=== PATIENT | female | born 1990 | race Caucasian/White ===

== ENCOUNTER 2018-10-16 15:59 | Inpatient (IN) | payer OTHER ==
[2018-10-16] MEDS ORDERED: BUTORPHANOL 1 MG/ML 1 ML VIAL IV PRN (16:11)
[2018-10-16] MEDS ORDERED: DINOPROSTONE 10 MG INSERT.ER VAGINAL ONE (16:11)
[2018-10-16] MEDS ORDERED: ZOLPIDEM 5 MG TAB PO PRN (16:11)
[2018-10-16 16:20] VITALS: BMI 39.0
--- NOTE | 2018-10-16 18:48 | P.HPOB ---
History of Present Illness H&P Date: 10/16/18 Chief Complaint: Induction of labor 28-year-old presents at 39 weeks for induction of labor. Her cervix is closed, thick, -3 station. The plan is for Cervidil tonight and Pitocin in the morning. heart tones are 120s with moderate variability and reactive. Review of Systems All systems: negative Constitutional: Denies chills, Denies fever Eyes: denies blurred vision, denies pain Ears, nose, mouth and throat: Denies headache, Denies sore throat Cardiovascular: Denies chest pain, Denies shortness of breath Respiratory: Denies cough Gastrointestinal: Denies abdominal pain, Denies diarrhea, Denies nausea, Denies vomiting Genitourinary: Denies dysuria, Denies hematuria Musculoskeletal: Denies myalgias Integumentary: Denies pruritus, Denies rash Neurological: Denies numbness, Denies weakness Psychiatric: Denies anxiety, Denies depression Endocrine: Denies fatigue, Denies weight change Past Medical History Past Medical History: No Reported History Additional Past Medical History / Comment(s): Obstetrics history: She's had 3 spontaneous abortions and this is her fourth . Blood type O-, rubella immune, hepatitis B negative, RPR nonreactive. History of Any Multi-Drug Resistant Organisms: None Reported Past Surgical History: No Surgical Hx Reported Additional Past Surgical History / Comment(s): colonoscopy Past Anesthesia/Blood Transfusion Reactions: No Reported Reaction Past Psychological History: ADD/ADHD Smoking Status: Never smoker Past Alcohol Use History: None Reported Past Drug Use History: None Reported - Past Family History Father Family Medical History: Coronary Artery Disease (CAD) Medications and Allergies Home Medications Medication Instructions Recorded Confirmed Type Pnv No.95/Ferrous Fum/Folic AC 1 tab PO DAILY 10/16/18 10/16/18 History [ Multivitamin Tablet] Allergies Allergy/AdvReac Type Severity Reaction Status Date / Time No Known Allergies Allergy Verified 10/16/18 16:09 Exam Osteopathic Statement: *. No significant issues noted on an osteopathic structural exam other than those noted in the History and Physical/Consult. Vital Signs Temp Pulse Resp BP Pulse Ox 10/16/18 16:08 97.2 F L 85 16 135/68 98 Intake and Output 10/16/18 10/16/18 10/16/18 06:59 14:59 22:59 Other: Weight 127.006 kg Heart: Regular rate and rhythm Lungs: Clear to auscultation bilaterally Abdomen: Soft, nontender Extremities: Negative Homans sign Assessment and Plan (1) Normal labor Current Visit: Yes Status: Acute Code(s): O80 - ENCOUNTER FOR FULL-TERM UNCOMPLICATED DELIVERY; Z37.9 - OUTCOME OF DELIVERY, UNSPECIFIED SNOMED Code(s): 97573115 Plan: 1. Induction of labor with Cervidil tonight and then Pitocin in the morning.
[2018-10-17] MEDS ORDERED: METHYLERGONOVINE 0.2 MG/ML 1 ML AMP IM PRN (05:13)
[2018-10-17] MEDS ORDERED: LIDOCAINE 0.5% (PF) 5 MG/ML (50 ML SDV) SQ PRN (05:13)
[2018-10-17] MEDS ORDERED: OXYTOCIN 10 UNIT/ML 1 ML VIAL IM PRN (05:13)
[2018-10-17] MEDS ORDERED: TERBUTALINE 1 MG/ML VIAL SQ PRN (05:13)
[2018-10-17] MEDS ORDERED: AMPICILLIN 2,000 MG in SODIUM CHLORIDE 0.9% 100 ML IVPB STA (05:13)
[2018-10-17] MEDS ORDERED: CARBOPROST TROMETHAMINE 250 MCG/ML 1 ML AMP IM PRN (05:13)
[2018-10-17] MEDS ORDERED: OXYTOCIN 30 UNITS/500 ML NS 30 UNIT in SALINE 1 500ML.BAG IV SCH (05:15)
[2018-10-17 05:42] LABS: Basophils # (A) 0.1 k/uL (0-0.2); Basophils % (A) 0 %; Eosinophils # (A) 0.1 k/uL (0-0.7); Eosinophils % (A) 1 %; HCT 42.5 % (34.0-46.0); HGB 13.2 gm/dL (11.4-16.0); Lymphocytes # (A) 1.6 k/uL (1.0-4.8); Lymphocytes % (A) 11 %; MCH 27.4 pg (25.0-35.0); MCV 88.5 fL (80.0-100.0); Mean Platelet Volume 6.4; Monocytes # (A) 0.6 k/uL (0-1.0); Monocytes % (A) 4 %; Neutrophils # (A) 11.8 k/uL (1.3-7.7); Neutrophils % (A) 83 %; Platelet Count 203 k/uL (150-450); RDW 14.8 % (11.5-15.5); WBC 14.2 k/uL (3.8-10.6)
[2018-10-17] MEDS: LACTATED RINGERS 1,000 ML IV SCH ×2 (05:42→15:36)
[2018-10-17] MEDS ORDERED: ceFAZolin 3 GM in SODIUM CHLORIDE 0.9% 100 ML IVPB ONE (08:58)
[2018-10-17] MEDS ORDERED: CITRIC ACID-SODIUM CITRATE 15 ML CUP PO ONE (08:58)
[2018-10-17] MEDS ORDERED: AMPICILLIN 1,000 MG in SODIUM CHLORIDE 0.9% 50 ML IVPB SCH (09:30)
[2018-10-17] MEDS ORDERED: ePHEDrine SULFATE/0.9% NACL/PF 50 MG/5 ML SYRINGE IV ONE (16:56)
[2018-10-17] MEDS ORDERED: ONDANSETRON 4 MG/2 ML VIAL ONE (16:56)
[2018-10-17] MEDS ORDERED: NALBUPHINE 10 MG/ML (1 ML AMP) ONE (16:56)
[2018-10-17] MEDS ORDERED: MORPHINE SULFATE (PF) 0.3 MG/0.3 ML SYR ONE (16:56)
[2018-10-17] MEDS ORDERED: LACTATED RINGERS 1,000 ML BAG IV ONE (16:56)
[2018-10-17] MEDS ORDERED: KETOROLAC 30 MG/ML 1 ML VIAL ONE (16:56)
[2018-10-17] MEDS ORDERED: OXYTOCIN 10 UNIT/ML 1 ML VIAL ONE (16:56)
--- NOTE | 2018-10-17 17:39 | P.PN ---
Progress Note - Text Progress Note Date: 10/17/18 Patient was seen and evaluated this morning with notation that she had made no cervical change through the night. We had offered and discussed discharged home with return in a couple days to retry she is adamant that she have a section for delivery today. We'll plan delivery today. Vital signs are otherwise stable and she is afebrile. And a category 1 tracing is noted.
--- NOTE | 2018-10-17 17:42 | P.OP ---
Date of Procedure: 10/17/18 Preoperative Diagnosis: Intrauterine at term: Failure to dilate Postoperative Diagnosis: Same Procedure(s) Performed: Primary low transverse section Anesthesia: spinal Surgeon: Asaf Salamanca Pilot Can Router #1: Sarah Nazario Estimated Blood Loss (ml): 500 IV fluids (ml): 800 Urine output (ml): 200 Pathology: none sent Condition: stable Disposition: floor Operative Findings: Female scores of 8 and 9 at one and 5 minutes respectively and the weight was 8 lbs. 0 oz. Description of Procedure: Patient was taken to the operating suite where a spinal anesthetic was found be adequate. She was prepped and draped in normal sterile fashion and placed in dorsal supine position with leftward tilt. Initially a Pfannenstiel skin incision was made and this incision was then carried through to underlying layer of the fascia was second knife. Fascia was then nicked in the midline and this opening was extended laterally with Ordaz scissors. Superior and inferior aspect of this incision were then grasped tented up and bluntly and sharply dissected off the rectus muscles. Rectus muscles were then divided in the midline and sharp dissection through the peritoneum was done. This opening was then extended superiorly and inferiorly with good visualization of both bowel bladder. Bladder blade was then placed and the bladder flap identified. It was entered with Metzenbaum scissors and this opening was extended across the face uterus with Metzenbaum scissors. Knife was then used to incise uterus. This incision was then fully developed with hemostat and then extended bluntly. Head was then atraumatically delivered and mouth nares were bulb suctioned. Anterior and posterior shoulders were then easily delivered followed by the remainder the baby. Nursery personnel was present to assume care in the umbilical cord was clamped cut usual fashion. Placenta was then delivered intact following collection of cord blood. Uterus was then exteriorized cleared of clots and debris and closed in 2 layers with 0 Vicryl suture. Once excellent hemostasis was obtained. Blood and debris was then suctioned from the posterior cul-de-sac and the uterus was reinserted into the abdomen. Peritoneal layer was reapproximated with 0 Vicryl suture. Fascial layer was closed with 0 Vicryl suture. One layer of 3-0 Vicryl was placed in deep subcuticular tissues reapproximate the skin and skin was then closed with 3-0 Vicryl subcuticularly. Sponge, lap, needle counts were all correct 2. Patient was then taken to the recovery room in stable and satisfactory condition.
[2018-10-17] MEDS ORDERED: SIMETHICONE 80 MG CHEWABLE PO PRN (23:24)
[2018-10-17] MEDS ORDERED: diphenhydrAMINE 50 MG/ML 1 ML VIAL IVP PRN ×2 (23:24)
[2018-10-17] MEDS ORDERED: METOCLOPRAMIDE 5 MG/ML 2 ML VIAL IVP PRN (23:24)
[2018-10-17] MEDS ORDERED: diphenhydrAMINE 50 MG CAP PO PRN (23:24)
[2018-10-17] MEDS ORDERED: NALOXONE 0.4 MG/ML 1 ML VIAL IV PRN (23:24)
[2018-10-17] MEDS ORDERED: ONDANSETRON 4 MG/2 ML VIAL IVP PRN (23:24)
[2018-10-17] MEDS ORDERED: diphenhydrAMINE 25 MG CAP PO PRN (23:24)
[2018-10-17] MEDS ORDERED: ACETAMINOPHEN TAB 325 MG TAB PO PRN (23:24)
[2018-10-18] MEDS: LACTATED RINGERS 1,000 ML IV SCH ×4 (00:12→20:36)
[2018-10-18] MEDS: KETOROLAC 30 MG/ML 1 ML VIAL IVP PRN ×2 (02:04→07:45)
--- NOTE | 2018-10-18 05:51 | P.PN ---
Progress Note - Text Progress Note Date: 10/18/18 Patient doing well. Ambulating without paresthesia or weakness. Denies headache. Pain controlled. Spinal site clean and dry A/P POD#1 s/p with spinal duramorph - doing well
[2018-10-18 07:14] LABS: Basophils % (A) 0 %; Eosinophils # (A) 0.1 k/uL (0-0.7); Eosinophils % (A) 1 %; HCT 34.2 % (34.0-46.0); Lymphocytes # (A) 0.9 k/uL (1.0-4.8); Lymphocytes % (A) 7 %; MCH 28.3 pg (25.0-35.0); MCHC 32.2 g/dL (31.0-37.0); MCV 87.6 fL (80.0-100.0); Monocytes # (A) 0.6 k/uL (0-1.0); Monocytes % (A) 5 %; Neutrophils # (A) 10.8 k/uL (1.3-7.7); Neutrophils % (A) 86 %; Platelet Count 165 k/uL (150-450); RDW 14.7 % (11.5-15.5); WBC 12.5 k/uL (3.8-10.6)
--- NOTE | 2018-10-18 07:36 | P.PNOBGPC ---
Subjective - Subjective Principal diagnosis: Postop day 1 Interval history: Overall patient is doing well. She does have some nausea take was ambulation, this is not unusual this early post-operatively. She is able and delivery and has voided. Vital signs are otherwise stable and she is afebrile. Heart regular, lungs clear, extremities are without pain. We'll allow her to remove dressing later this morning with her shower. All other questions are answered for her at this time. Assessment postop day 1. Plan continue current care and advancement of diet. Patient reports: Reports appetite normal, Reports voiding normally, Reports pain well controlled, Reports ambulating normally [place]: doing well Objective - Vital Signs Latest vital signs: Vital Signs Temp Pulse Resp BP Pulse Ox 10/18/18 03:52 97.6 F 66 16 109/61 99 10/18/18 00:00 97.6 F 79 16 127/73 10/17/18 20:00 76 16 133/56 98 10/17/18 19:30 98.0 F 85 16 133/66 98 10/17/18 18:54 73 16 143/67 10/17/18 18:39 74 18 135/59 10/17/18 18:20 82 18 142/79 97 10/17/18 18:09 82 18 141/68 97 10/17/18 18:00 83 18 135/63 97 10/17/18 17:45 96.5 F L 85 18 129/58 97 Intake and Output 10/17/18 10/18/18 10/18/18 22:59 06:59 14:59 Intake Total 300 Output Total 50 500 Balance -50 -200 Intake: Other 300 Output: Urine 50 300 Uretheral (Conn) 200 Emesis 200 Other: # Emeses 1 - Labs Labs: Abnormal Lab Results - Last 24 Hours (Table) 10/18/18 Range/Units 06:27 WBC 12.5 H (3.8-10.6) k/uL Hgb 11.0 L (11.4-16.0) gm/dL Neutrophils # 10.8 H (1.3-7.7) k/uL Lymphocytes # 0.9 L (1.0-4.8) k/uL
[2018-10-18] MEDS: SENNOSIDES-DOCUSATE SODIUM 1 EACH TAB PO SCH ×2 (07:45→20:05)
[2018-10-18 16:40] VITALS: RESP 16
[2018-10-18] MEDS: IBUPROFEN 600 MG TAB PO PRN ×2 (16:40→23:04)
[2018-10-18] MEDS: HYDROcodone/APAP 7.5-325MG 1 EACH TAB PO PRN (20:05)
[2018-10-19] MEDS: HYDROcodone/APAP 7.5-325MG 1 EACH TAB PO PRN ×2 (02:13→08:05)
[2018-10-19] MEDS: IBUPROFEN 600 MG TAB PO PRN ×2 (05:07→10:29)
[2018-10-19 08:05] VITALS: BP 128/76; PULSE 71; TEMP 97.7
[2018-10-19] MEDS: SENNOSIDES-DOCUSATE SODIUM 1 EACH TAB PO SCH (08:05)
--- NOTE | 2018-10-19 08:46 | P.DS ---
Providers Date of admission: 10/16/18 15:59 Expected date of discharge: 10/19/18 Attending physician: Asaf Salamanca Primary care physician: Stated None Hospital Course: Patient is doing very well postop day 2. She is involuting, voiding, and tolerating her diet. She voices no complaints. Vital signs are stable and afebrile. Heart regular, lungs clear, extremities without pain. Abdomen soft uterus is firm and incision is clean dry and intact. Assessment postop day 2. Plan discharged home follow up with me in 1 week. Prescriptions for Motrin and Bogue provided and all questions are answered for her prior to discharge. Patient Condition at Discharge: Good Plan - Discharge Summary New Discharge Prescriptions: New Ibuprofen [Motrin] 600 mg PO Q6HR PRN #30 tab PRN Reason: Pain HYDROcodone/APAP 5-325MG [Bogue 5-325] 1 tab PO Q4HR PRN #30 tab PRN Reason: Pain No Action Pnv No.95/Ferrous Fum/Folic AC [ Multivitamin Tablet] 1 tab PO DAILY Discharge Medication List Pnv No.95/Ferrous Fum/Folic AC [ Multivitamin Tablet] 1 tab PO DAILY 10/16/18 [History] HYDROcodone/APAP 5-325MG [Bogue 5-325] 1 tab PO Q4HR PRN #30 tab 10/19/18 [Rx] Ibuprofen [Motrin] 600 mg PO Q6HR PRN #30 tab 10/19/18 [Rx] Follow up Appointment(s)/Referral(s): Asaf Salamanca DO [Doctor of Osteopathic Medicine] - 1 Week Activity/Diet/Wound Care/Special Instructions: No heavy lifting, stairs and driving, and pelvic rest. If any high temperatures, heavy bleeding, or severe pain call my office Discharge Disposition: HOME SELF-CARE
== END 2018-10-19 10:45 | disposition home or self-care (01) | DRG 788 ==
LOC: 4FBP 15:59
PROVIDERS: ADMIT Obstetrics & Gynecology; ATTEND Obstetrics & Gynecology
PROC: 3E0P7VZ Introduction of Hormone into Female Reproductive, Via Natural or Artificial Opening (ICD-10-PCS; 2018-10-16)
PROC: 3E033VJ Introduction of Other Hormone into Peripheral Vein, Percutaneous Approach (ICD-10-PCS; 2018-10-17)
PROC: 10D00Z1 Extraction of Products of Conception, Low, Open Approach (ICD-10-PCS; principal; 2018-10-17 17:00)
DX: O62.0 Primary inadequate contractions (principal); O99.344 Other mental disorders complicating childbirth; F90.9 Attention-deficit hyperactivity disorder, unspecified type; Z3A.39 39 weeks gestation of pregnancy; Z37.0 Single live birth; Z79.899 Other long term (current) drug therapy; Z82.49 Family history of ischemic heart disease and other diseases of the circulatory system
CPT/HCPCS: 85025; 86850; 86900; 86901

== ENCOUNTER → 2019-09-27 | Outpatient (CLI) | payer OTHER ==
--- NOTE | 2019-09-27 14:47 | US ---
EXAMINATION TYPE: Transabdominal DATE OF EXAM: 09/27/2019 2:33 PM COMPARISON: NONE CLINICAL HISTORY: Bleeding O46.91. Spotting EXAM PERFORMED: Transabdominal (TA) EXAM MEASUREMENTS: GESTATIONAL AGE / DATING Physician Established: Not yet established Dates by LMP: ( 9 weeks/2 days) EDC: 04/29/2020 Dates by First Scan: No previous this is first scan Dates by Current Scan for: (6 weeks/1 days) EDC: 05/21/2020 MATERNAL ANATOMY Uterus: 9.5 x 5.7 x 6.2 cm Right Ovary: 2.9 x 2.0 x 1.9 cm Left Ovary: Obscured by bowel gas. Post CDS / Adnexa: wnl Presence of free fluid: no Presence of corpus luteal cyst: no Presence of subchorionic bleed: no GESTATION / SURVEY CRL: 3.92 (6 weeks/1 days) Heart Rate Fluttering seen unable to get on accurate heart rate. Rhythm: Normal IUP: Viable IUP Beta HcG (if available): Not available at this time IMPRESSION: Single viable intrauterine noted.
== END | disposition home or self-care (01) ==
LOC: RADUSWWP 14:02
PROVIDERS: ATTEND Obstetrics & Gynecology
DX: O46.91 Antepartum hemorrhage, unspecified, first trimester (principal); Z3A.01 Less than 8 weeks gestation of pregnancy
CPT/HCPCS: 76801

== ENCOUNTER 2019-10-12 21:47 | Emergency (ER) | payer OTHER ==
[2019-10-12] MEDS ORDERED: SODIUM CHLORIDE 0.9% 500 ML 500 ML IV ONE (22:50)
[2019-10-12] MEDS ORDERED: MORPHINE SULFATE 4 MG/ML SYRINGE IV STA (22:50)
[2019-10-12 23:34] LABS: Basophils # (A) 0.1 k/uL (0-0.2); Basophils % (A) 0 %; Eosinophils # (A) 0.1 k/uL (0-0.7); Eosinophils % (A) 0 %; HCT 40.8 % (34.0-46.0); HGB 13.5 gm/dL (11.4-16.0); Lymphocytes # (A) 1.2 k/uL (1.0-4.8); Lymphocytes % (A) 8 %; MCH 29.1 pg (25.0-35.0); MCHC 33.1 g/dL (31.0-37.0); Mean Platelet Volume 7.2; Monocytes # (A) 0.5 k/uL (0-1.0); Monocytes % (A) 3 %; Neutrophils # (A) 13.3 k/uL (1.3-7.7); Neutrophils % (A) 87 %; Platelet Count 255 k/uL (150-450); RBC 4.63 m/uL (3.80-5.40); RDW 12.8 % (11.5-15.5); WBC 15.2 k/uL (3.8-10.6)
[2019-10-12 23:43] LABS: ALT 20 U/L (4-34); AST 24 U/L (14-36); African American GFR (CKD) >90 (>60 ml/min/1.73 sqM); Albumin 4.7 g/dL (3.5-5.0); Alkaline Phosphatase 57 U/L (38-126); Anion Gap 10 mmol/L; Blood Urea Nitrogen 13 mg/dL (7-17); Calcium 10.2 mg/dL (8.4-10.2); Carbon Dioxide 24 mmol/L (22-30); Chloride 102 mmol/L (98-107); Glucose 100 mg/dL (74-99); Non-African American GFR(CKD) >90 (>60 ml/min/1.73 sqM); Potassium 4.6 mmol/L (3.5-5.1); Sodium 136 mmol/L (137-145); Total Bilirubin 0.6 mg/dL (0.2-1.3); Total Protein 7.5 g/dL (6.3-8.2)
[2019-10-12 23:52] LABS: Appearance,Urine Clear (Clear); Bilirubin,Urine Negative (Negative); Blood,Urine Large (Negative); Color,Urine Light Red; Glucose,Urine (UA) Negative (Negative); Ketones,Urine Negative (Negative); Leukocyte Esterase,Urine Small (Negative); Mucus,Urine Rare /hpf; Nitrite,Urine Negative (Negative); Protein,Urine Trace (Negative); RBC,Urine >182 /hpf (0-5); Specific Gravity,Urine 1.013 (1.001-1.035); Squamous Epithelial Cell,Urine 1 /hpf (0-4); Urobilinogen,Urine <2.0 mg/dL (<2.0); WBC,Urine 49 /hpf (0-5)
[2019-10-13 00:28] LABS: HCG,Quantitative Serum 18981.4 mIU/mL
--- NOTE | 2019-10-13 00:58 | ED ---
General Adult HPI - General Chief complaint: Vaginal Bleeding Stated complaint: Miscarriage, 8 wks Time Seen by Provider: 10/12/19 22:20 Source: patient, RN notes reviewed, old records reviewed Mode of arrival: ambulatory Limitations: no limitations - History of Present Illness Initial comments: 29-year-old female patient who is a reported presents ED for miscarriage. 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 She is approximately 8 weeks gestation. At that time she had an ultrasound that reportedly displayed a missed . Pt was prescribed ibuprofen by Dr. Salamanca. Shortly after leaving patient began experiencing suprapubic cramping and she is also passing some blood clots. Patient did receive RhoGAM 2 weeks ago. She denies any other complaints. Systemic: Pt denies fatigue, fever/chills, rash. Pt denies weakness, night sweats, weight loss. Neuro: Pt denies headache, visual disturbances, syncope or pre-syncope. HEENT: Pt denies ocular discharge or irritation, otalgia, rhinorrhea, pharyngitis or notable lymphadenopathy. Cardiopulmonary: Pt denies chest pain, SOB, heart palpitations, dyspnea on exertion. Abdominal/GI: Pt deniesn/v/d. : Pt denies dysuria, burning w/ urination, frequency/urgency. Denies new onset urinary or bowel incontinence. MSK: Pt denies myalgia, loss of strength or function in extremities. Neuro: Pt denies new onset weakness, paresthesias. - Related Data Home Medications Medication Instructions Recorded Confirmed Pnv No.95/Ferrous Fum/Folic AC 1 tab PO DAILY 10/16/18 10/16/18 [ Multivitamin Tablet] Previous Rx's Medication Instructions Recorded HYDROcodone/APAP 5-325MG [Neal 1 tab PO Q4HR PRN #30 tab 10/19/18 5-325] Ibuprofen [Motrin] 600 mg PO Q6HR PRN #30 tab 10/19/18 Allergies Allergy/AdvReac Type Severity Reaction Status Date / Time morphine AdvReac Nausea & Verified 10/12/19 23:28 Vomiting Review of Systems ROS Statement: Those systems with pertinent positive or pertinent negative responses have been documented in the HPI. ROS Other: All systems not noted in ROS Statement are negative. Past Medical History Past Medical History: No Reported History Additional Past Medical History / Comment(s): Obstetrics history: She's had 3 spontaneous abortions and this is her fourth . Blood type O-, rubella immune, hepatitis B negative, RPR nonreactive. History of Any Multi-Drug Resistant Organisms: None Reported Past Surgical History: No Surgical Hx Reported Additional Past Surgical History / Comment(s): colonoscopy Past Anesthesia/Blood Transfusion Reactions: No Reported Reaction Past Psychological History: ADD/ADHD Smoking Status: Never smoker Past Alcohol Use History: None Reported Past Drug Use History: None Reported - Past Family History Father Family Medical History: Coronary Artery Disease (CAD) General Exam - General Exam Comments Initial Comments: Constitutional: NAD, AOX3, Pt has pleasant affect. HEENT: NC/AT, trachea midline, neck supple, no lymphadenopathy. External ears appear normal, without discharge. Mucous membranes moist. Eyes PERRLA, EOM intact. There is no scleral icterus. No pallor noted. Cardiopulmonary: RRR, no murmurs, rubs or gallops, no JVD noted. Lungs CTAB in anterior and posterior dejesus. No peripheral edema. Abdominal exam: Abdomen soft and non-distended. Abdomen mildly tender to palpation in suprapubic region. Bowel sounds active in LLQ. No hepatosplenomegaly. No ecchymosis Neuro: CN II-XII grossly intact. No nuchal rigidity. No raccon eyes, no kaye sign, no hemotympanum. No cervical spinal tenderness. MSK: Full active ROM in upper and lower extremities, 5/5 stregnth. Limitations: no limitations Course Vital Signs 10/12/19 10/12/19 21:56 23:43 Temperature 97.5 F L 98 F Pulse Rate 75 76 Respiratory 18 18 Rate Blood Pressure 126/75 122/80 O2 Sat by Pulse 98 98 Oximetry Medical Decision Making - Medical Decision Making 29-year-old female patient who is a reported presents ED for miscarriage. 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 She is approximately 8 weeks gestation. At that time she had an ultrasound that reportedly displayed a missed . Pt was prescribed ibuprofen by Dr. Salamanca. Shortly after leaving patient began experiencing suprapubic cramping and she is also passing some blood clots. Patient did receive RhoGAM 2 weeks ago. She denies any other complaints. Patient also has a stable, afebrile. Physical exam , suprapubic discomfort. Laboratory investigations reveal mild leukocytosis of 15.2. HCG Quant is 18,000. UA doesn't display blood with small amount white blood cells. Patient is not having any urinary symptoms. Patient will be discharged to follow Dr. Salamanca and will return to ER if condition worsens. Case discussed with Dr. Davis. - Lab Data Result diagrams: 10/12/19 23:24 10/12/19 23:24 Lab Results 10/12/19 10/12/19 10/12/19 Range/Units 23:24 23:24 23:24 WBC 15.2 H (3.8-10.6) k/uL RBC 4.63 (3.80-5.40) m/uL Hgb 13.5 (11.4-16.0) gm/dL Hct 40.8 (34.0-46.0) % MCV 88.0 (80.0-100.0) fL MCH 29.1 (25.0-35.0) pg MCHC 33.1 (31.0-37.0) g/dL RDW 12.8 (11.5-15.5) % Plt Count 255 (150-450) k/uL Neutrophils % 87 % Lymphocytes % 8 % Monocytes % 3 % Eosinophils % 0 % Basophils % 0 % Neutrophils # 13.3 H (1.3-7.7) k/uL Lymphocytes # 1.2 (1.0-4.8) k/uL Monocytes # 0.5 (0-1.0) k/uL Eosinophils # 0.1 (0-0.7) k/uL Basophils # 0.1 (0-0.2) k/uL Sodium 136 L (137-145) mmol/L Potassium 4.6 (3.5-5.1) mmol/L Chloride 102 (98-107) mmol/L Carbon Dioxide 24 (22-30) mmol/L Anion Gap 10 mmol/L BUN 13 (7-17) mg/dL Creatinine 0.83 (0.52-1.04) mg/dL Est GFR (CKD-EPI)AfAm >90 (>60 ml/min/1.73 sqM) Est GFR (CKD-EPI)NonAf >90 (>60 ml/min/1.73 sqM) Glucose 100 H (74-99) mg/dL Calcium 10.2 (8.4-10.2) mg/dL Total Bilirubin 0.6 (0.2-1.3) mg/dL AST 24 (14-36) U/L ALT 20 (4-34) U/L Alkaline Phosphatase 57 (38-126) U/L Total Protein 7.5 (6.3-8.2) g/dL Albumin 4.7 (3.5-5.0) g/dL HCG, Quant 78896.4 mIU/mL Urine Color Light Red Urine Appearance Clear (Clear) Urine pH 6.0 (5.0-8.0) Ur Specific [place] 1.013 (1.001-1.035) Urine Protein Trace H (Negative) Urine Glucose (UA) Negative (Negative) Urine Ketones Negative (Negative) Urine Blood Large H (Negative) Urine Nitrite Negative (Negative) Urine Bilirubin Negative (Negative) Urine Urobilinogen <2.0 (<2.0) mg/dL Ur Leukocyte Esterase Small H (Negative) Urine RBC >182 H (0-5) /hpf Urine WBC 49 H (0-5) /hpf Ur Squamous Epith Cells 1 (0-4) /hpf Urine Mucus Rare H (None) /hpf Disposition Clinical Impression: Miscarriage Disposition: HOME SELF-CARE Condition: Stable Instructions (If sedation given, give patient instructions): Miscarriage (ED) Additional Instructions: Follow-up with primary care provider and diesel truck driver tomorrow. Return to ER if condition worsens in any way. Is patient prescribed a controlled substance at d/c from ED?: No Referrals: Robbin Manrique MD [Primary Care Provider] - 1-2 days Asaf Salamanca DO [Doctor of Osteopathic Medicine] - 1-2 days
[2019-10-13] MEDS ORDERED: ACET/COD 300 MG/30 MG STARTER PACK 6 TAB BTL PO STA (00:59)
[2019-10-13 10:29] VITALS: BP 116/75; PULSE 75; RESP 18; TEMP 98
== END 2019-10-13 01:33 | disposition home or self-care (01) ==
LOC: EC 21:47
DX: O02.1 Missed abortion (principal); O99.111 Other diseases of the blood and blood-forming organs and certain disorders involving the immune mechanism complicating pregnancy, first trimester; D72.829 Elevated white blood cell count, unspecified; Z88.5 Allergy status to narcotic agent; Z3A.08 8 weeks gestation of pregnancy
CPT/HCPCS: 36415; 80053; 81001; 84702; 85025; 87086; 96360; 99284

== ENCOUNTER → 2020-03-13 | Outpatient (CLI) | payer OTHER ==
[2020-03-13 15:03] VITALS: BP 115/63; PULSE 60; RESP 18; TEMP 98.1
--- NOTE | 2020-03-13 15:14 | P.PN ---
Subjective Progress Note Date: 03/13/20 DATE OF SERVICE: 03/13/2020 REASON FOR CONSULTATION: Status post sleeve gastrectomy HISTORY OF PRESENT ILLNESS: Cristiana Bhatti is a 29-year-old female who comes with lifelong morbid obesity. She had her sleeve gastrectomy 3+ months ago in [place], September 2019. She reports new 1 month abdominal pain along the epigastrium. She reports epigastric pain. Her highest weight was 270 pounds. Now she comes in 202 pounds. She denies current nausea or vomiting. She reports family history of gallbladder disease in her grandmother and uncle. She denies moderate gastroesophageal reflux disease prior to baritric surgery. She now new gastroesophageal reflux following her sleeve gastrectomy. She denies any blood in stools. She reports epigastric pain is aggravated after eating. She has past history of miscarriage. No reports of dysphagia. She had for dinner yesterday, where she had turkey on a wrap. Her protein intake is less than 40 g daily. She denies her hair falling out. She presents to me first time in consultation for bariatric management and new abdominal pain. At height of 5 feet 3.75 inches, her ideal body weight is 140 pounds. She comes in 219 pounds. Her body mass index is 38.0. She is 79 pounds overweight. PAST MEDICAL HISTORY: 1. Morbid obesity due to excess calories 2. Body mass index of 38.0, initial 3. ADD/ADHD 4. Gastroesophageal reflux disease. PAST SURGICAL HISTORY: 1. Sleeve gastrectomy, September 2019 2. Colonoscopy 3. section, 2018 HOME MEDICATIONS: Home Medications Medication Instructions Recorded Confirmed Acetaminophen Tab [Tylenol Tab] 500 mg PO Q6H PRN 03/13/20 03/13/20 Ketorolac [Toradol] 10 mg PO Q6HR PRN 03/13/20 03/13/20 Multivitamins, Thera [Multivitamin 1 tab PO DAILY 03/13/20 03/13/20 (formulary)] Omeprazole 20 mg PO BID 03/13/20 03/13/20 ALLERGIES: Allergies Allergy/AdvReac Type Severity Reaction Status Date / Time morphine AdvReac Nausea & Verified 03/13/20 17:07 Vomiting SOCIAL HISTORY: Denies past tobacco use. FAMILY HISTORY: No family history of ulcerative colitis disease or Crohn's disease. Family history of morbid obesity. No lupus in the family. No reports of stomach or esophageal cancer. REVIEW OF ORGAN SYSTEMS: CONSTITUTIONAL: HEENT: Denies any active troubles with vision or hearing. Has troubles with swallowing. ENDOCRINE: Denies diabetes. No hypothyroidism. CARDIOVASCULAR: Denies past reports of palpitations or heart attacks or chest pain. RESPIRATORY: Denies daytime somnolence. Denies asthma. GASTROINTESTINAL: Denies any bright red blood per rectum. No diarrhea. No constipation. Has gastroesophageal reflux disease. MUSCULOSKELETAL: Has lower back pain and joint pain. Has osteoarthritis of the knees. NEURO: No headaches. No seizure disorders. PSYCH: Denies depression. No suicidal ideation. Has ADD/ADHD RHEUMATOLOGIC: No lupus. No rheumatoid arthritis. HEMATOLOGIC: Denies any abnormal bleeding or bruising. No personal history of DVTs. SKIN: No rash. No skin cancer. PHYSICAL EXAM: VITAL SIGNS: Height 5 foot 11 inches, weight 202 pounds. BMI 28.2 Vital Signs Temp 98.1 F 03/13/20 14:55 Pulse 60 03/13/20 14:55 Resp 18 03/13/20 14:55 BP 115/63 03/13/20 14:55 Pulse Ox GENERAL: Well-developed in no acute distress. HEENT: No scleral icterus. Extraocular movements grossly intact. Hears conversational speech. No nasal drainage. NECK: Supple without lymphadenopathy. CHEST: Nonlabored respirations with equal bilateral excursions. CARDIOVASCULAR: Regular rate and regular rhythm. Distal 2+ pulses. ABDOMEN: Obese, soft, nontender, nondistended. MUSCULOSKELETAL: No clubbing, cyanosis. Gross strength 5/5 distal lower extremities. NEURO: No focal or lateralizing signs. Cranial nerves 2 through 12 grossly within normal limits. PSYCH: Appropriate affect. Alert and oriented to person, place and time. SKIN: Good skin turgor. Well perfused. ASSESSMENT: 1. Morbid obesity due to excess calories 2. Body mass index of 38.0, initial 3. ADD/ADHD 4. Gastroesophageal reflux disease. 5. Epigastric abdominal pain 6. Odynophagia 7. Gallbladder disorder. 8. Family history gallbladder disease. PLAN: 1. Recommend CT of the abdomen and pelvis with oral and IV contrast due to her abdominal pain. 2. Recommend ultrasound of the gallbladder. 3. Recommend full bariatric metabolic labs Thank you for this consultation. Objective - Vital Signs Vital signs: Vital Signs Temp 98.1 F 12/09/20 14:55 Pulse 60 03/13/20 14:55 Resp 18 03/13/20 14:55 BP 115/63 03/13/20 14:55 Pulse Ox
--- NOTE | 2020-05-16 18:11 | P.HPBAR ---
Bariatric H&P - History & Physicial H&P Date: 03/13/20 History & Physicial: Visit/CC: initial visit; ROXANNE Patient initial contact: Initial weight: Initial weight in pounds: Height: 5 ft 11 in Initial BMI: Last weight: Current weight: 91.626 kg Current weight in pounds: Current BMI: [place] body weight (based on NIH guidelines): Excess body weight loss: The patient is a 29 year-old F who presents for Bariatric Assessment. DATE OF SERVICE: 03/13/2020 REASON FOR CONSULTATION: Status post sleeve gastrectomy HISTORY OF PRESENT ILLNESS: Cristiana Bhatti is a 29-year-old female who comes with lifelong morbid obesity. She had her sleeve gastrectomy 3+ months ago in [place], September 2019. She reports new 1 month abdominal pain along the epigastrium. She reports epigastric pain. Her highest weight was 270 pounds. Now she comes in 202 pounds. She denies current nausea or vomiting. She reports family history of gallbladder disease in her grandmother and uncle. She denies moderate gastroesophageal reflux disease prior to baritric surgery. She now new gastroesophageal reflux following her sleeve gastrectomy. She denies any blood in stools. She reports epigastric pain is aggravated after eating. She has past history of miscarriage. No reports of dysphagia. She had for dinner yesterday, where she had turkey on a wrap. Her protein intake is less than 40 g daily. She denies her hair falling out. She presents to me first time in consultation for bariatric management and new abdominal pain. At height of 5 feet 11 inches, her ideal body weight is 178 pounds. She comes in 202 pounds. Her body mass index is 28.2 Her highest weight was 270 pounds, BMI 37.7. Lifetime weight loss is 68%. Lifetime percent excess weight loss is 74%. She is 24 pounds overweight. PAST MEDICAL HISTORY: 1. Morbid obesity due to excess calories 2. Body mass index of 38.0, initial 3. ADD/ADHD 4. Gastroesophageal reflux disease. PAST SURGICAL HISTORY: 1. Sleeve gastrectomy, September 2019 2. Colonoscopy 3. section, 2018 HOME MEDICATIONS: Home Medications Medication Instructions Recorded Confirmed Acetaminophen Tab [Tylenol Tab] 500 mg PO Q6H PRN 03/13/20 03/13/20 Ketorolac [Toradol] 10 mg PO Q6HR PRN 03/13/20 03/13/20 Multivitamins, Thera [Multivitamin 1 tab PO DAILY 03/13/20 03/13/20 (formulary)] Omeprazole 20 mg PO BID 03/13/20 03/13/20 ALLERGIES: Allergies Allergy/AdvReac Type Severity Reaction Status Date / Time morphine AdvReac Nausea & Verified 03/13/20 17:07 Vomiting SOCIAL HISTORY: Denies past tobacco use. FAMILY HISTORY: No family history of ulcerative colitis disease or Crohn's disease. Family history of morbid obesity. No lupus in the family. No reports of stomach or esophageal cancer. REVIEW OF ORGAN SYSTEMS: CONSTITUTIONAL: At height of 5 feet 11 inches, her ideal body weight is 178 pounds. She comes in 202 pounds. Her body mass index is 28.2 Her highest weight was 270 pounds, BMI 37.7. Lifetime weight loss is 68%. Lifetime percent excess weight loss is 74%. She is 24 pounds overweight. HEENT: Denies any active troubles with vision or hearing. Denies troubles with swallowing. ENDOCRINE: Denies diabetes. No hypothyroidism. CARDIOVASCULAR: Denies past reports of palpitations or heart attacks or chest pain. RESPIRATORY: Denies daytime somnolence. Denies asthma. GASTROINTESTINAL: Denies any bright red blood per rectum. No diarrhea. No constipation. Has gastroesophageal reflux disease. MUSCULOSKELETAL: Has lower back pain and joint pain. Has osteoarthritis of the knees. NEURO: No headaches. No seizure disorders. PSYCH: Denies depression. No suicidal ideation. Has ADD/ADHD RHEUMATOLOGIC: No lupus. No rheumatoid arthritis. HEMATOLOGIC: Denies any abnormal bleeding or bruising. No personal history of DVTs. SKIN: No rash. No skin cancer. PHYSICAL EXAM: VITAL SIGNS: Height 5 foot 11 inches, weight 202 pounds. BMI 28.2 Vital Signs Temp 98.1 F 03/13/20 14:55 Pulse 60 03/13/20 14:55 Resp 18 03/13/20 14:55 BP 115/63 03/13/20 14:55 Pulse Ox GENERAL: Well-developed in no acute distress. HEENT: No scleral icterus. Extraocular movements grossly intact. Hears conversational speech. No nasal drainage. NECK: Supple without lymphadenopathy. CHEST: Nonlabored respirations with equal bilateral excursions. CARDIOVASCULAR: Regular rate and regular rhythm. Distal 2+ pulses. ABDOMEN: Obese, soft, nontender, nondistended. MUSCULOSKELETAL: No clubbing, cyanosis. Gross strength 5/5 distal lower extremities. NEURO: No focal or lateralizing signs. Cranial nerves 2 through 12 grossly within normal limits. PSYCH: Appropriate affect. Alert and oriented to person, place and time. SKIN: Good skin turgor. Well perfused. ASSESSMENT: 1. Morbid obesity due to excess calories 2. Body mass index of 38.0, initial 3. ADD/ADHD 4. Gastroesophageal reflux disease. 5. Epigastric abdominal pain 6. Odynophagia 7. Gallbladder disorder. 8. Family history gallbladder disease. PLAN: 1. Recommend CT of the abdomen and pelvis with oral and IV contrast due to her abdominal pain. 2. Recommend ultrasound of the gallbladder. 3. Recommend full bariatric metabolic labs Past Medical History Past Medical History: No Reported History Additional Past Medical History / Comment(s): Obstetrics history: She's had 3 spontaneous abortions and this is her fourth . Blood type O-, rubella immune, hepatitis B negative, RPR nonreactive. History of Any Multi-Drug Resistant Organisms: None Reported Past Surgical History: Bariatric Surgery, Section Additional Past Surgical History / Comment(s): colonoscopy; sleeve 12/2019; csection 2018 Past Anesthesia/Blood Transfusion Reactions: No Reported Reaction Past Psychological History: ADD/ADHD Smoking Status: Never smoker Past Alcohol Use History: None Reported Past Drug Use History: None Reported - Past Family History Father Family Medical History: Coronary Artery Disease (CAD) Surgical - Exam Vital Signs Temp Pulse Resp BP 98.1 F 60 18 115/63 03/13/20 14:55 03/13/20 14:55 03/13/20 14:55 03/13/20 14:55 Bariatric Checklist Checklist: Plan: Checklist: EGD: 1. Hiatal hernia: 2. H. Pylori: HgbA1c: Vitamin D: Smoking: Never smoker Primary care physician referral: Dr. Robbin Cadena Psychiatry clearance: Cardiology clearance: Sleep study: Diet journal: VTE risk score: VTE risk level: Rehab needs at discharge:
== END | disposition home or self-care (01) ==
LOC: BARWHC3 14:19
PROVIDERS: ATTEND Surgery Plastic and Reconstructive Surgery
DX: Z48.815 Encounter for surgical aftercare following surgery on the digestive system (principal); E66.01 Morbid (severe) obesity due to excess calories; K21.9 Gastro-esophageal reflux disease without esophagitis; R10.13 Epigastric pain; N32.9 Bladder disorder, unspecified; R13.10 Dysphagia, unspecified; F90.9 Attention-deficit hyperactivity disorder, unspecified type; Z84.1 Family history of disorders of kidney and ureter; Z98.84 Bariatric surgery status; Z79.899 Other long term (current) drug therapy; Z68.38 Body mass index [BMI] 38.0-38.9, adult; Z88.5 Allergy status to narcotic agent
CPT/HCPCS: 99211

== ENCOUNTER → 2020-03-15 | Outpatient (CLI) | payer OTHER ==
[2020-03-15 11:46] LABS: HGB 13.4 gm/dL (11.4-16.0); MCH 29.3 pg (25.0-35.0); MCHC 33.4 g/dL (31.0-37.0); MCV 87.8 fL (80.0-100.0); Mean Platelet Volume 7.1; Platelet Count 215 k/uL (150-450); RBC 4.55 m/uL (3.80-5.40); RDW 12.8 % (11.5-15.5); WBC 4.4 k/uL (3.8-10.6)
[2020-03-15 17:44] LABS: Hemoglobin A1C 4.6 % (4.0-6.0)
[2020-03-15 19:52] LABS: % Iron Saturation 25.73 (12.00-45.00); African American GFR (CKD) 116.3 (60.0-200.0); Albumin 5.2 g/dL (3.80-4.90); Albumin/Globulin Ratio 2.36 (1.60-3.17); Anion Gap 9.2 mmol/L (4.00-12.00); BUN/Creat Ratio 21.25 Ratio (12.00-20.00); Calcium 10.4 mg/dL (8.7-10.3); Carbon Dioxide 25.8 mmol/L (21.6-31.8); Chol/HDL Ratio 4.42; Globulin 2.2 g/dL (1.6-3.3); Magnesium 2.1 mg/dL (1.5-2.4); Non-African American GFR(CKD) 100.3 (60.0-200.0); Phosphorus 4.2 mg/dL (2.4-5.1); Potassium 4.3 mmol/L (3.5-5.5); Total Bilirubin 0.9 mg/dL (0.3-1.2); Total Protein 7.4 g/dL (6.2-8.2)
[2020-03-15 19:58] LABS: Ferritin 57.5 ng/mL (10.0-291.0)
[2020-03-15 20:08] LABS: Folate, Serum 16.3 ng/mL
[2020-03-16 04:49] LABS: Prothrombin Time 10.8 sec (9.9-11.9)
[2020-03-17 16:05] LABS: Selenium 119 mcg/L (63-160)
[2020-03-18 16:49] LABS: Zinc, Serum 85 ug/dL (60-130)
[2020-03-19 07:25] LABS: Vitamin A 68 ug/dL (38-106)
[2020-03-19 07:41] LABS: Vit B1(Thiamine) 52 ug/L (38-122)
== END | disposition home or self-care (01) ==
LOC: LABWHC1 10:42
PROVIDERS: ATTEND Surgery Plastic and Reconstructive Surgery
DX: E66.01 Morbid (severe) obesity due to excess calories (principal); E89.1 Postprocedural hypoinsulinemia; D50.8 Other iron deficiency anemias; K90.89 Other intestinal malabsorption; E55.9 Vitamin D deficiency, unspecified; K74.1 Hepatic sclerosis; N19 Unspecified kidney failure; K50.90 Crohn's disease, unspecified, without complications
CPT/HCPCS: 36415; 80053; 80061; 82306; 82525; 82607; 82728; 82746; 83036; 83540; 83550; 83735; 83970; 84100; 84134; 84255; 84425; 84443; 84590; 84630; 85027; 85610; 85730; 93005

== ENCOUNTER → 2020-03-28 | Outpatient (CLI) | payer OTHER ==
--- NOTE | 2020-04-01 08:27 | CT ---
EXAMINATION TYPE: CT abdomen pelvis w con DATE OF EXAM: 03/30/2020 COMPARISON: NONE HISTORY: 29-year-old female K56.60, upper abdominal pain and nausea, small bowel obstruction. TECHNIQUE: Contiguous axial scanning of the abdomen and pelvis following administration of 100 ml Iso josé 300 IV contrast. Delayed images through the kidneys and coronal/sagittal reconstructions perform ed. CT DLP: 863.6 mGycm Automated exposure control for dose reduction was used. FINDINGS: Heart normal size without pericardial effusion. Lung bases clear without pleural effusion. Postsurgical change of sleeve gastrectomy. Minimal nonspecific fat stranding along the anterior right paramedian omentum could represent some om ental vessels, refer to axial images 27 through 29. There is a 4.3 cm irregular area of hypoenhancement within the posterior right hepatic dome, axial im age 11 on the initial postcontrast series, not identified on the delayed kidney images. Otherwise, no focal liver lesion. Liver enlarged at 20.0 cm. Portal venous system is patent. No biliary ductal dil atation. Adrenal glands, kidneys, and pancreas appear within normal limits. Spleen is upper limits of normal in size at 13.2 cm. No dilated small bowel, free fluid, or free air. No mesenteric or retroperitoneal lymphadenopathy. Normal appendix. Mild overall stool burden. Oral contrast has progressed to the splenic flexure of th e colon. No pericolonic inflammatory change. The tiny hyperdense focus within the anterior left lower quadrant compatible with a dropped surgical clip likely of no clinical consequence. Bladder is urine distended. Uterus is retroflexed and anteverted. There is mild cul-de-sac free fluid . In addition, there is a 3.7 cm cystic lesion of the right ovary, probable dominant follicle or func tional cyst. No pelvic lymphadenopathy. Bones: Moderate degenerative disc disease L5-S1. IMPRESSION: 1. SOME MINIMAL FAT STRANDING ALONG THE ANTERIOR RIGHT PARAMEDIAN OMENTUM COULD REPRESENT SOME OMENTA L VESSELS OR MILD NONSPECIFIC INFLAMMATION (SMALL OMENTAL INFARCT OR OMENTITIS). 2. A 4.3 CM IRREGULAR AREA OF HYPOENHANCEMENT WITHIN THE POSTERIOR RIGHT HEPATIC DOME. NOT VISUALIZED ON THE ULTRASOUND OF THE SAME DAY. THIS MAY REPRESENT A GEOGRAPHIC AREA OF FOCAL FAT. AN AREA OF HEP ATIC INFARCTION IS A MUCH LESS COMMON ENTITY. CONSIDER FOLLOW-UP MRI IN 3 MONTHS TO REASSESS OR SOONE R IF THE PATIENT'S SYMPTOMS PERSIST. 3. THE SLEEVE GASTRECTOMY APPEARS UNCOMPLICATED. 4. A 3.7 CM CYSTIC LESION OF THE RIGHT OVARY COULD REPRESENT A DOMINANT FOLLICLE OR FUNCTIONAL CYST. A 6-8 WEEK FOLLOW-UP ULTRASOUND DEMONSTRATE INVOLUTION. MILD CUL-DE-SAC FREE FLUID LIKELY PHYSIOLOGI C.
--- NOTE | 2020-04-01 09:42 | US ---
Ultrasound gallbladder HISTORY: Right upper quadrant pain Ultrasound performed in the right upper quadrant. Visual portions of the pancreas are normal. There is no ascites. Visualized inferior vena cava is nor mal. The liver shows no mass. Right kidney measures 10 cm and shows no hydronephrosis. Common bile du ct measures 5 mm. Gallbladder shows no stone. IMPRESSION: There are some limitations to the exam. No abnormality evident to account for patient's s ymptoms.
== END | disposition home or self-care (01) ==
LOC: RADUSWWP 09:20
PROVIDERS: ATTEND Surgery Plastic and Reconstructive Surgery
DX: K76.3 Infarction of liver (principal); N83.201 Unspecified ovarian cyst, right side; K31.89 Other diseases of stomach and duodenum; R93.2 Abnormal findings on diagnostic imaging of liver and biliary tract; R10.11 Right upper quadrant pain; R10.13 Epigastric pain; R10.84 Generalized abdominal pain; Z98.890 Other specified postprocedural states
CPT/HCPCS: 76705; 74177; Q9967